=== PATIENT | male | born 1985 | race Caucasian/White ===

== ENCOUNTER 2019-03-07 15:49 | Emergency (ER) | payer MEDICAID ==
[~2019-03-07] VITALS: Ht 190.5 cm; Wt 122.7 kg
[~2019-03-07 15:49] MED LIST: HYDROCODONE-APA1 TAB PO; PERCOCET 10/3251 TA1 PO
[2019-03-07 16:32] VITALS: Ht 190.5 cm; Wt 122.7 kg
[2019-03-07] MEDS ORDERED: CLEOCIN HCL300 MG PO (19:13)
[2019-03-07 19:42] VITALS: BP 140/90
== END 2019-03-07 19:40 | disposition home or self-care (01) ==
LOC: D.ER 15:49
DX: S91.114A Laceration without foreign body of right lesser toe(s) without damage to nail, initial encounter (principal); X58.XXXA Exposure to other specified factors, initial encounter